=== PATIENT | female | born 1990 | race Hispanic/Latino ===

== ENCOUNTER 2019-07-03 17:47 | Emergency (ER) | payer OTHER ==
[~2019-07-03 17:47] MED LIST: IBUP-2070 PO; PREN1TAB80 PO; TYL3 PO
[2019-07-03] MEDS ORDERED: ONDANSETRON ODT 4 MG TAB ONE (17:59)
[2019-07-03 18:11] LABS: APPEARANCE,URINE Turbid (CLEAR); BILIRUBIN,URINE Negative (NEGATIVE); COLOR,URINE Yellow (YELLOW); GLUCOSE, URINE (UA) Negative (NEGATIVE); KETONES,URINE Negative (NEGATIVE); LEUKOCYTE ESTERASE ,URINE Large (NEGATIVE); NITRATE,URINE Positive (NEGATIVE); OCCULT BLOOD,URINE Large (NEGATIVE); PH,URINE 5.5 (5.0-8.0); PROTEIN,URINE POS 2+ mg/dL (NEGATIVE)
[2019-07-03 18:16] LABS: HCG,QUAL RESULT NEGATIVE (NEGATIVE)
[2019-07-03 18:22] LABS: BACTERIA,URINE Moderate /HPF (None Seen); MUCUS,URINE Few LPF (None Seen); RBC,URINE >100 /HPF (0-1); SQUAMOUS EPITHELIAL CELL,UR 0-2 /HPF (0-2); WBC,URINE TNTC /HPF (0-1)
[2019-07-03] MEDS ORDERED: CEFTRIAXONE SODIUM 1 GM ONE (19:00)
[2019-07-03] MEDS ORDERED: SODIUM CHLORIDE 0.9% 1000ML 1,000 ML IV ONE (19:00)
[2019-07-03] MEDS ORDERED: ACETAMINOPHEN 325 MG TAB ONE (19:00)
[2019-07-03 19:10] LABS: BASOPHILS % (AUTO) 0.1 % (0.0-5.0); EOSINOPHILS % (AUTO) 0.1 % (0.0-8.0); HEMATOCRIT 40.6 % (36-48); LYMPHOCYTES % (AUTO) 5.7 % (21.0-51.0); MEAN CORPUSCULAR HEMOGLOBIN 28.9 pg (27.0-33.0); MEAN CORPUSCULAR HGB CONC 33.5 g/dL (32.0-36.0); MEAN CORPUSCULAR VOLUME 86.1 fL (79-99); MONOCYTES % (AUTO) 7.1 % (3.0-13.0); PLATELET COUNT (AUTO) 311 K/uL (130-400); RED BLOOD CELL COUNT(AUTO) 4.72 MIL/uL (4.00-5.50); RED CELL DISTRIBUTION WIDTH 14.8 % (11.0-15.5); WHITE BLOOD COUNT (AUTO) 19.8 K/uL (4.8-10.8)
[2019-07-03 19:16] LABS: CREATININE 0.9 mg/dL (0.5-1.5); POTASSIUM 3.6 mmol/L (3.5-5.1)
[2019-07-03 19:21] LABS: BILIRUBIN,TOTAL 0.6 mg/dL (0.2-1.0); TOTAL PROTEIN, SERUM 8.4 g/dL (6.0-8.3)
[2019-07-03] MEDS ORDERED: IOHEXOL-350 75 ML VIAL IV ONE (19:26)
== END 2019-07-03 20:27 | disposition home or self-care (01) ==
LOC: EDH 17:47
DX: N30.00 Acute cystitis without hematuria (principal); Z98.890 Other specified postprocedural states
CPT/HCPCS: 36415; 74177; 80053; 81001; 81025; 85025; 87040 ×2; 87077; 87088; 87186; 87804 ×2; 96374; 99285; J0696; J7030; Q9967